=== PATIENT | female | born 1960 | race Caucasian/White ===

== ENCOUNTER 2016-09-08 18:58 | Inpatient (IN) | payer OTHER ==
[~2016-09-08] VITALS: Ht 172.7 cm; Wt 122.0 kg
[2016-09-08 19:03] VITALS: PULSE 63; RESP 18; O2SAT 99
[2016-09-08 19:34] LABS: BASOPHILS % (AUTO) 0.2 % (0-3); EOSINOPHILS % (AUTO) 1.8 % (0-5); MONOCYTES % (AUTO) 6.5 % (4-12); Mean Corpuscular Hemoglobin 27.3 pg (27.0-35.0); Mean Corpuscular Volume 84.1 fL (81-100); NEUTROPHILS % (AUTO) 70.8 % (40-74); Platelet Count 216 bil/L (150-400)
--- NOTE | 2016-09-08 19:35 | ED.REPORT ---
HPI-Chest Pain 40 and Over Date of Service Sep 08, 2016 ED Provider: Dr. Samir Johnston MD A 55 year old female with a history of anxiety presents to the ED complaining of substernal chest pain that began 45 minutes prior to arrival. She describes the pain as a pressure; as if "someone is sitting on her". She rates her current pain as a 7/10. Patient reports similar symptoms during previous anxiety attacks. She received one dose of Nitro upon arrival to the ED and experienced no relief. Patient is a former smoker and denies all other cardiac risk factors. Nursing Notes Stated Complaint: CHEST PAIN Chief Complaint: Chest Pain Nursing Notes Reviewed: Yes Allergies: Coded Allergies: ibuprofen (Verified Allergy, Mild, Headache, 09/08/16) Scheduled Cyanocobalamin (Vitamin B12) 500 Mcg Tablet 1,000 MCG PO QAM Estradiol (Vagifem) 10 Mcg Tablet 10 MCG VG WEEKLY Metformin (Metformin) 500 Mg Tablet 500 MG PO BIDWM Multivit with Calcium,Iron,Min (Therapeutic M) 1 Each Tablet 1 EACH PO QAM Thyroid,Pork (Nature-Throid) 65 Mg Tablet 65 MG PO HS Scheduled PRN Acetaminophen (Acetaminophen) 325 Mg Tablet 650 MG PO BID PRN PRN For Fever Naproxen (Naproxen) 250 Mg Tablet 250 MG PO DAILY PRN PRN For Pain General Time Seen by MD: 19:35 Chief Complaint Chest pain Hx Obtained From: Patient Arrived By: Walk-in Sudden in Onset?: No Onset Occurred: 1 - 4 hours ago (2 hours prior) Symptom Duration: Since onset Location: : Chest left: Chest right Quality: Pressure Radiation: : Does not radiate Migration/Movement: Reports: None Severity: Current: Mild Severity: Maximum: Moderate Pertinent Negative: Pt denies other symptoms Recent Healthcare: No recent doctor visit, No recent hospitalization Risk Factors )( CAD Risk Stratification Smoking (Former) Risk factors reviewed )( TAD Risk Stratification Risk factors reviewed )( PE Risk Stratification Risk factors reviewed Past Medical History Past Medical History Anxiety Obstructive Sleep Apnea Past Surgical History Colonoscopy Family History Grandmother heart attack at 80 Smoking History Former Smoker Social History Other Social History: Good social support, Local resident Ambulatory Status Independent Review of Systems Constitutional: Denies: Chills, Fever Cardiovascular: Reports: Chest pain GI: Reports: Nausea, Denies: Vomiting Complete sys rev & neg: except as marked. Physical Exam Initial Vital Signs Vital Signs (First) Date Time Temp Pulse Resp B/P Pulse Ox O2 Delivery O2 Flow Rate FiO2 09/08/16 19:03 36.1 63 18 99 Room Air 09/08/16 19:37 177/85 09/08/16 20:22 2 Initial VS: Reviewed Head / Eyes: Atraumatic, Normocephalic, PERRL Extremities: Vascular intact, Neuro intact, No swelling, No tenderness Skin: Warm, Dry, No cyanosis Neurologic: Alert, Oriented, Nonfocal Psychiatric: Mood/affect normal, Behavior normal, Normal thought content General/Constitutional: Awake, Alert Behavior: Positive: Anxious Respiratory / Chest: Atraumatic, Breath sounds NL, Breath sounds = bilat, No respiratory distress Cardiovascular: Heart rate NL, Regular rhythm, No gallop, No murmurs, No rubs Heart Sounds / Murmur: Positive: Systolic murmur present.. (Soft) CARDIO: Hypertensive upon arrival to ED Abdomen: Atraumatic, Soft Interpretation & Diagnostics Lab Results Interpretation Result Diagram: 09/08/16192209/08/161922 Test 09/08/16 19:23 White Blood Count 6.3th/mm3 (3.8-10.1) Red Blood Count 4.91mil/mm3 (3.90-5.20) Hemoglobin 13.4g/dL (12.0-15.6) Hematocrit 41.3% (35.0-46.0) Mean Corpuscular Volume 84.1fL (81-100) Mean Corpuscular Hemoglobin 27.3pg (27.0-35.0) Mean Corpuscular Hemoglobin Concent 32.4% (32.0-37.0) Red Cell Distribution Width 14.6% (12.3-15.4) Platelet Count 216bil/L (150-400) Neutrophils (%) (Auto) 70.8% (40-74) Lymphocytes (%) (Auto) 20.5% (14-46) Monocytes (%) (Auto) 6.5% (4-12) Eosinophils (%) (Auto) 1.8% (0-5) Basophils (%) (Auto) 0.2% (0-3) Activated Partial Thromboplast Time 31.5sec (22.8-33.0) Sodium Level 136mEq/L (134-144) Potassium Level 4.0mEq/L (3.5-5.2) Chloride Level 98mEq/L (97-108) Carbon Dioxide Level 22mmol/L (18-29) Blood Urea Nitrogen 11mg/dL (6-24) Creatinine 0.71mg/dL (0.57-1.00) Estimat Glomerular Filtration Rate 122mL/min (>59) Glucose Level 107mg/dL (60-99) Calcium Level 9.7mg/dL (8.5-10.1) Magnesium Level 2.1mg/dL (1.6-2.6) Total Bilirubin 0.4mg/dL (0.0-1.2) Aspartate Amino Transf (AST/SGOT) 16U/L (0-50) Alanine Aminotransferase (ALT/SGPT) 12U/L (0-32) Alkaline Phosphatase 85U/L (25-150) Total Creatine Kinase 115U/L (21-215) Creatine Kinase MB 2.9ng/mL (0.0-5.3) Creatine Kinase MB % % (0.0-5.0) Troponin T 0.034ug/L (0.0-0.011) Total Protein 7.8g/dL (6.4-8.4) Albumin 4.5g/dL (3.4-5.0) Thyroid Stimulating Hormone (TSH) 59.790uIU/mL (0.450-4.500) Hold Orellana Top Tube Received (Received) ECG Interpretation ECG Interpretation: Sinus rhythm No acute Rate 58 Time: 19:16 Interpreted by: ED physician ECG Interpretation: Sinus rhythm Rate 53 No acute Borderline prologned FL interval Probably left ventricular hypertrophy Anterior Q waves Time: 20:04 Interpreted by: ED physician Repeat ECG: Repeat ECG unchanged ECG Interpretation: Sinus rhythm Rate 56 No change Time: 21:51 Interpreted by: ED physician Repeat ECG: Repeat ECG unchanged X-Ray Chest Interpretation Chest Xray Interpretation: IMPRESSION: No acute disease Dictated by: Shelton Morgan M.D. on 09/08/2016 at 20:28 Interpretation / Wet Read by: Interpret - Radiologist Re-Eval/Medical Decision Med Decision/Clinical Course 55-year-old female with ischemic sounding chest pain and elevated troponin. ECGs have been without acute change 3. Treated for non-ST elevation ME with aspirin, topical nitrates, morphine, metoprolol, Plavix and heparin. Patient is quite anxious we gave her a small dose of lorazepam. Cardiology has been consulted will be admitted to the hospitalist service. Time of Eval: 20:26 Re-Evaluation/Progress Note: Patient reports that her pain is still a constant 7/10. She is informed of her concerning labs and the plan to admit. Time of Eval: 21:40 Patient Status: Condition improved Re-Evaluation/Progress Note: Patient is rechecked. Pain is still present. She rates her current pain as a 5/10. Consultation #1: Referral / Consult Name: Kaiser House MD Consulted With: Cardiology Call Returned at: 20:25 Ship'S Captain: Will see patient, Agrees with eval, Agrees with plan Note: Agrees to consult Consultation #2: Referral / Consult Name: Fredy Kraft MD Consulted With: Hospitalist Call Returned at: 20:54 Ship'S Captain: Will see patient, Agrees with eval, Agrees with plan, Accepts admit Counseled Regarding: Diagnosis, Lab results, Need for admission Discharge & Departure Primary Impression: Non-ST elevation ME (NSTEMI) Disposition: ADMITTED TO HOSPITAL Discharge Condition All VS Reviewed: Yes Condition: Stable Referrals: Gurinder Segundo MD (PCP) Latosha Attestation Portions of this note were transcribed by Abhi Dueñas. I, Dr. Johnston personally performed the history, physical exam and medical decision-making; I reviewed and confirmed the accuracy of the information in the transcribed note. Signed by: Latosha Phipps, 09/08/16 [id number]. copies to: Gurinder Segundo MD, Donald L MD Sep 08, 2016 19:35 ABHI DUEÑAS Sep 08, 2016 19:46
[2016-09-08 19:37] VITALS: BP 177/85; PULSE 65; RESP 18; O2SAT 99
[2016-09-08 19:52] LABS: TROPONIN T 0.034 ug/L (0.0-0.011)
[2016-09-08 20:03] LABS: Magnesium 2.1 mg/dL (1.6-2.6)
[2016-09-08 20:22] VITALS: BP 160/82; PULSE 65; RESP 19; O2SAT 98
[2016-09-08] MEDS ORDERED: Nitroglycerin 2% 1 Gm Ointment TOPICAL SCH (20:30)
[2016-09-08] MEDS ORDERED: Heparin 5,000 Unit/mL Inj IVPUSH ONE (20:30)
[2016-09-08] MEDS ORDERED: Heparin 25K Unit/500mL 0.45 NS 25,000 UNIT in IV Premix 1 EACH IV ONE (20:30)
--- NOTE | 2016-09-08 20:30 | DRSVH ---
PROCEDURE: X-RAY CHEST ONE VIEW, PORTABLE ([id number]) INDICATIONS: cp TECHNIQUE: One view of the chest was acquired. COMPARISON: None. FINDINGS: Surgical changes and devices: None. Lungs and pleura: No pleural effusions or pneumothorax. Lungs are clear. Mediastinum: Mediastinal contours appear normal. Heart size is normal. Bones and chest wall: No suspicious bony lesions. Overlying soft tissues appear unremarkable. IMPRESSION: No acute disease Dictated by: Shelton Morgan M.D. on 09/08/2016 at 20:28 Approved by: Shelton Morgan M.D. on 09/08/2016 at 20:28
[2016-09-08] MEDS ORDERED: THYR65TA4 PO (20:33)
[2016-09-08] MEDS ORDERED: METF500T4 PO (20:33)
[2016-09-08] MEDS ORDERED: ESTR10TA VG (21:10)
[2016-09-08] MEDS ORDERED: MULT-140 PO (21:13)
[2016-09-08] MEDS ORDERED: NAPR250T PO (21:13)
[2016-09-08] MEDS ORDERED: ACET325T51 PO (21:13)
[2016-09-08] MEDS ORDERED: CYAN500 PO (21:13)
[2016-09-08 21:16] VITALS: BP 172/81; PULSE 67; RESP 18; O2SAT 98
[2016-09-08] MEDS ORDERED: Senna-Docusate 8.6-50 mg Tablet PO PRN (21:30)
[2016-09-08] MEDS ORDERED: Alum-Mag Hydrox-Simeth 30 mL Suspension PO PRN (21:30)
[2016-09-08] MEDS ORDERED: Polyethylene Glycol (PEG) 17 Gm Powder PO PRN (21:30)
[2016-09-08] MEDS ORDERED: Ondansetron 2 mg/mL 2 mL Inj IVPUSH ONE (21:40)
--- NOTE | 2016-09-08 21:50 | PCM.HPMED ---
Subjective Date of Service Sep 08, 2016 Primary Provider: Admitting Physician: Fredy Kraft MD Primary Care Physician: Hair Roy MD Attending Physician: Fredy Kraft MD Admit Status: From the Emergency Department Chief Complaint: 2 hours of chest pain that did not resolve History of Present Illness: This is a pleasant 55 Y/O F with Hx of anxiety, diabetes type II and told on metformin 500 mg twice a day, thyroidism, takes thyroid pork 65 mg before bed, and WILFREDO on CPAP mask, who presented to the ED complaining of substernal chest pain, patient points to her chest onset 1800 on 09/08/2016. Patient describes the pain as a pressure; as if "someone is sitting on her". Associated symptoms include short of shortness of breath, nausea, blurry vision (which is not unusual for this patient with her previous episodes of chest pressure and dizziness), and pain with deep breathing. Patient denies any similar previous episodes of chest pain to this degree. Patient states that her pain is 8-9 out of 10. States that she received nitroglycerin and pain had worsened to 9 out of 10. Patient states that she was at rest however was very stressed at the time when the pain started. Patient reports similar symptoms during previous anxiety attacks. She received one dose of Nitro upon arrival to the ED and experienced slight worsening of her chest pain. Patient now complains of headache after nitroglycerin. Patient is a former smoker and quit in 1989. Patient used to smoke 1-3 cigarettes per day. Patient denied diaphoresis, pain that radiates to the neck, jaw, arm, or back, denies dizziness, lightheadedness, syncope, fever, cough, dyspnea, denies all other cardiac risk factors. Vital signs in the ED, temperature 36.1, pulse 60s, respiratory rate 18, BP 172/ 81, map 111, O2 98% on 2 L Patient received loading dose of heparin 5000 units once in the ED. Patient was placed on IV heparin drip in the ED. He was given metoprolol tartrate 25 mg by mouth once in the ED Patient was given loading dose of Plavix 3 mg once in the ED Patient was given Ativan 0.5 mg once, patient received half an inch of Nitropaste, morphine 2 mg, and aspirin 324 mg once. Hemogram showed H/H 13.4, 41.3, white blood cell count 6.3 otherwise normal hemogram. Chemstrip panel glucose 107, troponin 0.034, otherwise normal Chemstrip panel. Legs: PTT 31.5 CXR: No acute disease. Review of Systems: A comprehensive review of systems was conducted and was negative except as mentioned in history of present illness. Allergies Coded Allergies: ibuprofen (Verified Allergy, Mild, Headache, 09/08/16) Home Medications Metformin (Metformin) 500 Mg Tablet 500 MG PO BID Thyroid,Pork (Nature-Throid) 65 Mg Tablet 65 MG PO HS Multivitamin B12 PMH Anxiety Obstructive Sleep Apnea Heart murmur Surgical History Colonoscopy Family History Grandmother had a heart attack at age 80 Dad hypertension, prostate cancer Mom coronary disease, breast cancer, skin cancer Social History Hx Tobacco Use: No Smoking Status: Former Smoker Exam Vital Signs Vital Sign - Last Date Time Temp Pulse Resp B/P Pulse Ox O2 Delivery O2 Flow Rate FiO2 09/08/16 21:16 67 18 172/81 98 Nasal Cannula 2 09/08/16 19:03 36.1 Exam General: HEENT: NC/AT, eyes, PERRLA, EOMI, neck, soft supple, no adenopathy, no JVD, no masses, no thyromegaly, throat mucous membranes pink and moist/Dry, no erythema , no exudates, no tonsillar swelling, no uvular deviation. Lungs: CTAB all figueroa, no wheezes, no rhonchi, no crackles, no adventitious lung sounds, no use of accessory muscles of respiration, good air movement, good respiratory effort. Heart: Regular rate and rhythm, no murmur, S1-S2 present, no rub, no click, no distant heart sounds, Abdomen: Soft, nontender, nondistended, bowel sounds active, no rebound, no guarding, Genitourinary: No CVA tenderness, no suprapubic tenderness, no Mcfarlane catheter, Extremities: Muscle strength, 5 out of 5 upper/lower extremity and symmetric laterally, reflexes 2 out of 4 upper/lower extremity and symmetric bilaterally, pulses equal and symmetric upper/lower extremity including radial and dorsalis pedis, no edema Neurologic: See neurologically intact, PT in full sentences, no focal neurological signs, [id number], [id number], no pronator drift, no hemineglect. Skin: Psychiatric: Mood is cheerful and mood and affect are congruent and appropriate. Lab and Diagnostics Result Diagram: 09/08/16192209/08/161922 X-Rays, CTs and MRIs Date of Service: 09/08/161905 PROCEDURE: X-RAY CHEST ONE VIEW, PORTABLE INDICATIONS: cp TECHNIQUE: One view of the chest was acquired. COMPARISON: None. FINDINGS: Surgical changes and devices: None. Lungs and pleura: No pleural effusions or pneumothorax. Lungs are clear. Mediastinum: Mediastinal contours appear normal. Heart size is normal. Bones and chest wall: No suspicious bony lesions. Overlying soft tissues appear unremarkable. IMPRESSION: No acute disease Dictated by: Shelton Morgan M.D. on 09/08/2016 at 20:28 Approved by: Shelton Morgan M.D. on 09/08/2016 at 20:28 12-lead ECG -EKG, showed: Sinus rhythm rate 53, prolonged LA interval, probable left ventricular hypertrophy, anterior Q waves, inverted T waves in leads V1 and V2 and V3 Assessment & Plan 55-year-old female with history of obstructive sleep apnea, anxiety, diabetes mellitus type II who presented to the ED with acute onset substernal chest pain rated 8-9 out of 10 with elevated troponin, and abnormal EKG showing ST segment depressions in the inferior leads, with T-wave inversions in V1 through V3 consistent with NSTEMI. She was admitted to the hospital for NSTEMI and further workup # Acute Coronary Syndrome/NH, Present on Admission -EKG, showed: Sinus rhythm rate 53, prolonged LA interval, probable left ventricular hypertrophy, anterior Q waves, inverted T waves in leads V1 and V2 and V3 -CXR showed no acute disease -Troponin trending 2, CPK-MB ordered and pending -Echo ordered and pending -O2 Sats keep > 94% -IV normal saline fluids at 100 mL per hour maintenance dose -Start Metoprolol tartrate 12.5 mg every 12 hours -Start Lisinopril 5 mg daily -Atorvastatin 80 mg daily -Morphine for pain control -Aspirin 325mg + Plavix 300mg Loading with 75mg daily to follow -Patient received loading dose of Plavix 300 mg in the ED. -We will continue daily dosing of Plavix 75 mg tablet -Unfractionated Heparin IV dtt (Protamine for reversal if needed) -Continuous Cardiac Monitoring/BP monitoring -Cardio Consult -Labs (Lipid Panel, CBC, CMP, PT/PTT/INR) -Protonix IV Drip -NPO -Molded Goods Spot Picker Dr. House aware of this case Chronic problems Anxiety Obstructive Sleep Apnea Diabetes mellitus type II -We will hold metformin -Low-dose correctional scale insulin while in-house Disposition: Admitted to in patient service with expected length of stay greater than 2 days, secondary to severity of presenting symptoms, treatment plan, complexity of clinical work up, and risk of adverse events. CODE STATUS: Full code PCP: Hair Roy DVT PE prophylaxis: Patient on a heparin drip Contact: Antony patient's [phone] Pain Evaluation: Adequate Pain Control VTE Prophylaxis: Other (patient on heparin drip) Resuscitation Status: CPR: Attempt Resuscitation Attending Statement The patient was seen and examined together with Dr. Niño on 09/08/2016 and I agree with the history, exam and plan as outlined in the note above. Petros Niño DO Sep 08, 2016 21:50 Fredy Kraft MD Sep 09, 2016 05:05
[2016-09-08] MEDS ORDERED: Heparin 25K Unit/500mL 0.45 NS 25,000 UNIT in IV Premix 1 EACH IV SCH (22:05)
[2016-09-08] MEDS: 0.9% Sodium Chloride 1,000 ML IV SCH (22:42)
[2016-09-08 22:53] LABS: Creatine Kinase 115 U/L (21-215)
[2016-09-08] MEDS: Sodium Chloride LOK Flush 10 mL Syringe IVFLUSH SCH (23:07)
[2016-09-08 23:08] VITALS: BP 149/85; PULSE 63; RESP 19; O2SAT 98
--- NOTE | 2016-09-08 23:20 | NUR ---
Admit Pt arrived on unit at 2215. Pt was able to ambulate to scale and bed with SBA. Pt c/o 11/11 headache as well as mild CP at 07/14. MD in room and aware. VSS. A&Ox3. Placed on [employer] tele. Pt provides verbal health history. Family to bring in CPAP and complete med list. See flowsheet for complete assessment.
[2016-09-09] VITALS (9 sets, daily range): BP systolic 103–128; BP diastolic 51–78; PULSE 54–82; RESP 10–23; O2SAT 95–99
[2016-09-09 04:25] LABS: BASOPHILS % (AUTO) 0 % (0-3); EOSINOPHILS % (AUTO) 1.6 % (0-5); MONOCYTES % (AUTO) 6.6 % (4-12); Mean Corpuscular Hemoglobin 27.3 pg (27.0-35.0); Mean Corpuscular Volume 84.1 fL (81-100); NEUTROPHILS % (AUTO) 65.5 % (40-74); Platelet Count 202 bil/L (150-400)
[2016-09-09 04:41] LABS: INR 0.97 ratio
[2016-09-09 05:09] LABS: TROPONIN T 0.285 ug/L (0.0-0.011)
[2016-09-09] MEDS: Heparin Protocol Boluses IVPUSH PRN ×3 (05:18→22:32)
[2016-09-09] MEDS: Ondansetron 2 mg/mL 2 mL Inj IVPUSH PRN (05:26)
--- NOTE | 2016-09-09 07:33 | NUR ---
Cardiac status Substernal chest pressure unchanged from previous shift, rating discomfort 2 to 3/10. No radiating pain or associative symptoms reported at this time. Denies need for pain medication. Pressure stable. SB/SR per school bus monitor. Heparin gtt infusing per policy. Will continue to monitor.
[2016-09-09] MEDS: Sodium Chloride LOK Flush 10 mL Syringe IVFLUSH SCH ×3 (08:47→22:26)
--- NOTE | 2016-09-09 09:04 | PCM.PNMED ---
Subjective Date of Service Sep 09, 2016 Subjective This morning patient is feeling better. Her chest pain is down to 2-3/10. She denies shortness of breath, diaphoresis, vomiting. She endorses some nausea after receiving morphine. Telemetry: SR 7-80's. Exam Vital Signs Vital Sign - Last Date Time Temp Pulse Resp B/P Pulse Ox O2 Delivery O2 Flow Rate FiO2 09/09/16 07:29 Supplement Oxygen 09/09/16 07:26 36.8 56 16 128/77 99 1.00 Intake and Output 09/08/16 09/08/16 09/09/16 Cumulative From/Thru 15:00 23:00 07:00 09/08/16 19:03 - 09/09/16 06:16 Intake Total 0 ml 0 ml Output Total 250 ml 250 ml Balance -250 ml -250 ml Intake Oral 0 ml 0 ml Output Urine Total 250 ml 250 ml Exam General: Alert and oriented x 3 in no acute distress HEENT: Neck supple, jugulo venous distention, throat mucous membranes pink and moist Lungs: Clear to auscultation bilaterally, no wheezes, no rhonchi, no crackles Heart: Regular rate and rhythm, no murmur, S1-S2 present, no rub, no click, no distant heart sounds Abdomen: Soft, nontender, nondistended, bowel sounds active, no rebound, no guarding Extremities: No edema Lab and Diagnostics CK-MB 7.6 Troponin 0.034, 0.285 TSH 59.79 Free T4 0.39 Free T3 Cholesterol 214 LDL 139 Result Diagram: 09/09/16 0330 09/09/16 0330 X-Rays, CTs and MRIs CHEST x-ray IMPRESSION: No acute disease Dictated and approved by: Shelton Morgan M.D. on 09/08/2016 at 20:28 12-lead ECG -EKG, showed: Sinus rhythm rate 53, prolonged CT interval, probable left ventricular hypertrophy, anterior Q waves, inverted T waves in leads V1 and V2 and V3 Assessment & Plan Kimberly Garcia is a 55-year-old female with history of obstructive sleep apnea , anxiety, diabetes mellitus type II who presented to the ED with acute onset substernal chest pain rated 8-9 out of 10 with elevated troponin, and abnormal EKG showing ST segment depressions in the inferior leads, with T-wave inversions in V1 through V3 consistent with NSTEMI. She was admitted to the hospital for NSTEMI and further workup. Hospital day 1. # Acute Coronary Syndrome/MT, present on admission. Active -EKG, showed: Sinus rhythm rate 53, prolonged CT interval, probable left ventricular hypertrophy, anterior Q waves, inverted T waves in leads V1 and V2 and V3 -CXR showed no acute disease -Elevated troponin, CK-MB -Echo ordered and pending -O2 Sats keep > 94% -IV normal saline fluids at 100 mL per hour maintenance dose -Continue Metoprolol tartrate 12.5 mg every 12 hours -Continue Lisinopril 5 mg daily -Atorvastatin 80 mg daily -Morphine for pain control -Aspirin 325mg + Plavix 300mg Loading with 75mg daily to follow -Patient received loading dose of Plavix 300 mg in the ED. -We will continue daily dosing of Plavix 75 mg tablet -Unfractionated Heparin IV dtt (Protamine for reversal if needed) -Continuous Cardiac Monitoring/BP monitoring -Cardiology, Dr. Mock, consulted -Protonix IV Drip -NPO # Abnormally high thyroid stimulating hormone, present on admission. Active -Beside hypothyroidism, differential diagnosis include ectopic production, pituitary resistance, pituitary adenoma, TSH antibodies, etc. -Free T4 and T3 ordered -Call made to Dr. Jeremy Enciso, endocrinology -Spoke to Dr. Ingram, appreciate the input Chronic problems Hypothyroidism Anxiety Obstructive Sleep Apnea Diabetes mellitus type II -We will hold metformin -Low-dose correctional scale insulin while in-house Disposition: Admitted to in patient service with expected length of stay greater than 2 days, secondary to severity of presenting symptoms, treatment plan, complexity of clinical work up, and risk of adverse events. PCP: Hair Roy Contact: Antony patient's [phone] Pain Evaluation: Adequate Pain Control VTE Prophylaxis: Other (patient on heparin drip) Resuscitation Status: CPR: Attempt Resuscitation Attending Statement Patient's hypothyroidism precluded cardiac catheterization today. Levothyroxine supplementation at 50 g daily was initiated with planned cardiac catheterization tomorrow, 09/10/2016. The patient was seen and examined together with Dr. Beavers on 09/09/2016 and I agree with the history, exam and plan as outlined in the note above. . Bren Beavers DO Sep 09, 2016 09:04 Jatin Weinstein MD Sep 09, 2016 17:47
[2016-09-09] MEDS: 0.9% Sodium Chloride 1,000 ML IV SCH (10:48)
--- NOTE | 2016-09-09 11:28 | NUR ---
Social Work Note: Screen Note Data& Assessment: EMR reviewed. Kimberly Garcia is a 55 year old female admitted on 09/08/2016 for NON STEMI. Pt has [facility] insurance coverage and sees Hair Roy MD for primary care. Pt lives in [place] with her and is independent at baseline. 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 No discharge needs identified at this time. SW to continue to follow if any needs arise. Plan: Anticipated discharge home via POV when medically ready. No discharge needs identified at this time. SW to continue to follow if any needs arise. EULALIA Mccormack
--- NOTE | 2016-09-09 14:32 | DRSVH ---
[facility] [address] [place] [address] Echocardiogram Report Name: ALLA NAVARRETE ZStudy Date: Height: 68 in Hospital Exam Location: [facility] Weight: 268 lb Gender: Female BSA: 2.3 m2 : 1960 Age: 55 yrs BP: 126/61 mmHg Reason For Study: Chest pain History: obstructive sleep apnea, diabetes Ordering Physician: Performed By: Ileana Mayberry Referring Physician: Hair Roy Interpretation Summary 1) Normal left ventricular thickness and size with borderline reduced systolic function (EF 50-55%). 2) Mid to apical inferoseptum, mid to distal anteroseptum, and distal inferior wall are akinetic. 3) Normal right ventriciular size and function. 4) No significant valvular disease. 5) Elevated right sided filling pressures. 6) No prior Echo available for comparison. Procedure: A two-dimensional transthoracic echocardiogram with color flow and Doppler was performed. The study quality was technically adequate. There is no prior echocardiogram noted for this patient. The patient was in normal sinus rhythm during the exam. Left Ventricle: The left ventricle is normal in size. Left ventricular wall thickness is at the upper limits of normal. The ejection fraction is estimated to be 50-55%. Mid to apical inferoseptum, mid to distal anteroseptum, and distal inferior wall are akinetic. Assessment of diastolic parameters indicates normal left ventricular diastolic function and normal filling pressures. Right Ventricle: The right ventricle is normal in size and function. Atria: Both atria are normal in size. There is no Doppler evidence for an interatrial shunt. Mitral Valve: The mitral valve is normal in structure and function. There is trace mitral regurgitation. Aortic Valve: The aortic valve is trileaflet. The aortic valve opens well. There is no aortic valve stenosis. There is mild aortic regurgitation. Tricuspid Valve: The tricuspid valve is normal in structure and function. There is a trace or physiologic amount of tricuspid regurgitation. Pulmonary artery pressures cannot be estimated because of the lack of a measurable TR jet velocity. Pulmonic Valve: The pulmonic valve is not well visualized. There is a trace or physiologic amount of pulmonic regurgitation. Great Vessels: The aortic root is normal size. The ascending aorta is at the upper limits of normal in size. The aortic arch is at the upper limits of normal in size. The IVC is dilated (diameter is greater than 2.1 cm) and it collapses less than 50% with a sniff. This suggests a high right atrial pressure of 15 mm Hg. Pericardium/ Pleura There is no pericardial effusion. MMode/2D Measurements & Calculations LVIDd: 5.4 cm RA long axis LVOT diam: 2.0 cm LVIDs: 3.5 cm LA A2 area: 22.4 cm Ao root diam FS: 35.4 % LA A4 area: 22.2 cm RA area EPSS: 0.85 cm LA length (vol) asc Aorta Diam IVSd: 1.2 cm : 14.9 cm LVPWd: 1.0 cm LA vol: 71.9 ml RA vol Ao Arch Diam (Prox LA vol index : 40.8 ml Trans): 3.2 cm RA : 17.6 mm2 IVC diam: 2.3 cm LV henson. diameter/BSA LV sys. diameter/BSA RVD1 (basal) RVD2 (mid): 2.0 cm (cm/m^2): 2.3 (cm/m^2): 1.5 TAPSE: 2.4 cm Doppler Measurements & Calculations Ao V2 max MV E max gerry MV E/A: 1.2 PA V2 max : 216.8 cm/sec : 76.7 cm/sec Med Peak E' Gerry : 84.9 cm/sec Ao max PG MV A max gerry PA mean PG : 18.8 mmHg : 62.9 cm/sec E/E' med: 14.1 Ao mean PG MV P1/2t: 61.0 msec Lat Peak E' Gerry PA Accel Time : 0.12 sec LVOT Max Gerry E/E' lat: 8.6 : 126.3 cm/sec E/e' average: 11.3 Pulm A Revs Dur MILENA(I,D): 2.0 cm sev ratio MV A dur: 0.15 sec AI P1/2t : 1002 msec AI dec slope : 121.2 cm/s2c MV dec time MV P1/2t max gerry Ao V2 mean LV V1 max PG : 0.21 sec : 134.5 cm/sec MVA(P1/2t): 3.6 cm2 Ao V2 VTI: 52.7 cm LV V1 VTI MILENA(V,D): 1.9 cm2 : 33.7 cm PA V2 mean MILENA indexed to BSA Pulm A Revs Dur - MV A : 57.1 cm/sec (cm^2/m^2): 0.88 Dur: -0.01 msec Reading Physician:02:32 PM
--- NOTE | 2016-09-09 15:05 | PCM.CHPCAR ---
Consult Subjective Date of service Sep 09, 2016 Date of admit Sep 08, 2016 at 20:56 Provider Requesting Consult Requesting Provider: Jatin Weinstein MD Primary Care Physician Primary Care Physician: Hair Roy MD Chief Complaint chest pain, NSTEMI History of Present Illness 55 yo morbidly obese woman with severe hypothyroidism, diabetes, and estrogen use admitted with NSTEMI. At baseline, patient is mildly to moderately active. She can climb a small hill at a slow pace with dyspnea, like she did couple weeks ago in [place]. Yesterday, patient developed chest pain while on the phone with her [employer], who were making her upset. Chest pain persisted for 6 hours before it subsided but never completely resolved. She also got nitroglycerin in the ER but it did not help. Chronically, she has occasional lightheadedness on standing up from sitting position or changing position too fast and this lightheadedness self resolved within a few minutes. She denies palpitations, heart racing sensations, syncope, nausea, or vomiting. Roberts has chronic fatigue. She has not been getting treated for hypothyroidism but recently switched to [employer] Thyroid and has been taking it inconsistently. Review of Systems Review of Systems Per history of present illness and otherwise unremarkable PMH Past Medical History # Diabetes # Morbid obesity # Severe hyothyroidism # Estrogen use Bedside Blood Glucose: 102 Scheduled Cyanocobalamin (Vitamin B12) 500 Mcg Tablet 1,000 MCG PO QAM (Reported) Estradiol (Vagifem) 10 Mcg Tablet 10 MCG VG WEEKLY (Reported) Metformin (Metformin) 500 Mg Tablet 500 MG PO BIDWM (Reported) Multivit with Calcium,Iron,Min (Therapeutic M) 1 Each Tablet 1 EACH PO QAM ( Reported) Thyroid,Pork (Nature-Throid) 65 Mg Tablet 65 MG PO HS (Reported) Scheduled PRN Acetaminophen (Acetaminophen) 325 Mg Tablet 650 MG PO BID PRN PRN For Fever ( Reported) Naproxen (Naproxen) 250 Mg Tablet 250 MG PO DAILY PRN PRN For Pain (Reported) Current Inpatient Medications Current Medications Nitroglycerin 0.5 inch NOW TOPICAL Last administered on 09/08/16 21:09; Admin Dose 0.5 INCH; Start 09/08/16 at 20:30 Sodium Chloride 10 ml 10 ml RUFINA IVFLUSH Last administered on 09/09/16 14:12; Admin Dose 10 ML; Start 09/09/16 at 00:30 Sodium Chloride 1,000 ml @ 80 mls/hr [id number] IV Last administered on 09/09/16 10:48; Admin Dose 80 MLS/HR; Start 09/08/16 at 21:27 Lisinopril 5 mg BID PO Last administered on 09/09/16 08:47; Admin Dose 5 MG; Start 09/09/16 at 08:30 Metoprolol Tartrate 12.5 mg Q12 PO Last administered on 09/09/16 08:46; Admin Dose 12.5 MG; Start 09/09/16 at 08:30 Atorvastatin Calcium 80 mg HS PO; Start 09/09/16 at 21:00 Al Hydrox/Mg Hydrox/Simethicone 30 ml Q6 PRN PO; Start 09/08/16 at 21:30 Ondansetron HCl 4-8 mg prn nausea Q4 PRN IVPUSH Last administered on 09/09/16 05:26; Admin Dose 4 MG; Start 09/08/16 at 21:30 Senna 1 tablet BID PRN PO; Start 09/08/16 at 21:30 Polyethylene Glycol 17 gm DAILY PRN PO; Start 09/08/16 at 21:30 Acetaminophen 325 mg Q6 PRN PO Last administered on 09/09/16 10:03; Admin Dose 325 MG; Start 09/08/16 at 21:30 Morphine Sulfate 1-5 mg prn pain not relie... Q5M PRN IVPUSH Last administered on 09/09/16 05:23; Admin Dose 2 MG; Start 09/08/16 at 21:30 Aspirin 325 mg DAILY PO Last administered on 09/09/16 08:47; Admin Dose 325 MG; Start 09/09/16 at 08:30 Heparin Sodium (Porcine) PER PROTOCOL PRN PRN IVPUSH Last administered on 11:07; Admin Dose 1,000 UNIT; Start 09/08/16 at 22:10 Morphine Sulfate 2 mg Q4H PRN IVPUSH; Start 09/08/16 at 22:10; Status Cancel Levothyroxine Sodium 50 mcg DAILYAC PO; Start 09/10/16 at 07:30 Allergies: Coded Allergies: ibuprofen (Verified Allergy, Mild, Headache, 09/08/16) Family History Family History Her has diabetes but no heart disease. No family history of early heart disease. Social History Hx Alcohol Use: NoHx Substance Use: NoHx Tobacco Use: No Smoking Status: Former Smoker (quit 1998) Exam Vital Signs Vital Sign - Last Date Time Temp Pulse Resp B/P Pulse Ox O2 Delivery O2 Flow Rate FiO2 09/09/16 11:44 36.7 57 10 127/62 99 Room Air 09/09/16 07:26 1.00 Intake and Output 09/08/16 09/08/16 09/09/16 Cumulative From/Thru 15:00 23:00 07:00 09/08/16 19:03 - 09/09/16 06:16 Intake Total 0 ml 0 ml Output Total 250 ml 250 ml Balance -250 ml -250 ml Intake Oral 0 ml 0 ml Output Urine Total 250 ml 250 ml General appearance: No apparent distress, well-nourished, pleasant, cooperative HEET: Normocephalic atraumatic, no scleral icterus, tongue midline, mucous membranes moist Neck: supple, no carotid bruits Cardiovascular: RRR, normal S1 and normal S2, no m/r/g, PMI nondisplaced, JVP 10cm H20, no peripheral edema b/l Respiratory: Good aeration, CTAB Abdomen: Soft, nontender, obese, + bowel sounds Neuro: Alert, no facial droop, tongue midline Psych: mildly anxious Skin: no rashes on face, neck, and lower extremities Lab and Diagnostics Labs troponin 0.285 LDL 139, total chol 214, HDL 51, TSH 59.8, FT4 0.39 Result Diagram: 09/09/16 0330 09/09/16 0330 X-Rays, CTs and MRIs Eco 09/09/2016: 1) Normal left ventricular thickness and size with borderline reduced systolic function (EF 50-55%). 2) Mid to apical inferoseptum, mid to distal anteroseptum, and distal inferior wall are akinetic. 3) Normal right ventriciular size and function. 4) No significant valvular disease. 5) Elevated right sided filling pressures. 6) No prior Echo available for comparison. 12-lead ECG ECG on admission shows sinus rhythm with nonspecific T-wave changes and Q waves in V1 and V2 that could be due to prior anteroseptal ME. Assessment & Plan Assessment 55 yo morbidly obese woman with severe hypothyroidism, diabetes, and estrogen use admitted with NSTEMI. # NSTEMI: Patient's clinical story suggestive of acute coronary syndrome, as corroborated by the troponin of 0.285. She is minimally symptomatic presently and is very comfortable (does not want to take nitroglycerin). Her echocardiogram shows EF 50-55% with wall motion abnormalities in the RCA territory (inferoseptum/distal inferior wall) and possibly LAD territory ( anteroseptum). I spent significant time agitated and the patient about her condition. In usual case we would proceed with coronary angiography and possible PCI. However, patient's care is, by severe hypothyroidism with TSH of 59.8. Severe hypothyroidism can significantly and has effects of analgesics and anxiolytics that are commonly used during cardiac cath. Patient is an anxious person and would prefer to have sedation. After speaking with [facility] cardiology (Dr. Sanders) and endocrinology (Dr. Barby Sweet) and Dr. Sanchez ([facility] interventional cardiology), there is consensus to do the coronary angiography with minimal sedation and also monitoring tomorrow. Patient agrees with the plan. Recommendations as below: - Continue aspirin 81mg daily - Continue atorvatatin 80mg daily - s/p plavix 300mg load 09/08/2016 - Continue heparin gtt - Continue telemetry - Stop estrogen use as it significantly increases risk of ME - Coronary angiography with possible PCI tomorrow with Dr. Sanchez at 10AM. Informed consent signed after discussing benefits and risks and alternatives. # Severe hypothyroidism: Patient has severe hypothyroidism. She is not in myxedema coma. Dr. Barby Sweet ( endocrinology) suggest starting the patient on low-dose (50mcg) levothyroxine and uptitrating his slowly over the next couple of days to 125 g for 4 weeks and reassessing thryoid function. - Start levothyroxine 50mg daily and uptitrate in 1-2 days - Establish care with endocrinology as outpatient # HLD: Patient was not on a statin before. She has mild to moderate hyperlipidemia. Statin as above for management. # Diabetes: well managed. Defer to primary team for management. Thank you for the interesting consultation. I spent significant time speaking with the patient and coordinating care with various specialists, including from the [facility]. Cardiology will continue to follow. Pain Evaluation: Adequate Pain Control VTE Prophylaxis: Other (patient on heparin drip) Resuscitation Status: CPR: Attempt Resuscitation Ric Mock MD Sep 09, 2016 15:05
[2016-09-09 16:02] LABS: TROPONIN T 0.082 ug/L (0.0-0.011)
[2016-09-10] VITALS (17 sets, daily range): BP systolic 112–143; BP diastolic 60–84; PULSE 55–80; RESP 14–18; O2SAT 96–98
[2016-09-10] MEDS: 0.9% Sodium Chloride 1,000 ML IV SCH ×2 (01:21→12:45)
[2016-09-10] MEDS: Heparin Protocol Boluses IVPUSH PRN (04:35)
[2016-09-10 08:01] LABS: BASOPHILS % (AUTO) 0.2 % (0-3); EOSINOPHILS % (AUTO) 1.9 % (0-5); MONOCYTES % (AUTO) 6.5 % (4-12); Mean Corpuscular Hemoglobin 27.2 pg (27.0-35.0); Mean Corpuscular Volume 85.8 fL (81-100); NEUTROPHILS % (AUTO) 67.6 % (40-74); Platelet Count 181 bil/L (150-400)
[2016-09-10] MEDS: Sodium Chloride LOK Flush 10 mL Syringe IVFLUSH SCH ×2 (08:59→15:34)
[2016-09-10] MEDS ORDERED: 0.9% Sodium Chloride 1,000 ML ONE (09:08)
[2016-09-10] MEDS ORDERED: Heparin 1,000 Units/500 mL NS Premix IV ONE (09:08)
[2016-09-10] MEDS ORDERED: Heparin 5,000 Units/500 mL NS Premix IV ONE (09:09)
[2016-09-10] MEDS ORDERED: fentaNYL-PF 50 mCg/mL 2 mL Inj ONE (11:13)
[2016-09-10] MEDS ORDERED: hydrALAZINE 20 mg/mL Inj ONE ×2 (11:26→11:45)
[2016-09-10] MEDS: Ondansetron 2 mg/mL 2 mL Inj IVPUSH PRN (12:46)
--- NOTE | 2016-09-10 13:21 | CS94 ---
[address] [address] DIAGNOSTIC CARDIAC CATHETERIZATION PATIENT: ALLA NAVARRETE : 1960 MR#: [id number] ADMIT: 09/08/2016 JOB ID: [id number] SERVICE DATE: 09/10/2016 PATIENT PROFILE: The patient is a 55-year-old lady who presented with chest discomfort and elevated troponin. PROCEDURE: 1. Retrograde left heart catheterization. 2. Selective coronary angiography. 3. Left ventricular angiogram. 4. Vascular closure device: Perclose. COMPLICATIONS: None. METHOD: Retrograde left heart catheterization was performed from the right groin under 1% lidocaine local anesthesia using a 6-Austrian sheath. Selective coronary angiogram was performed in multiple projections, including cranial and caudal angulations with hand injected contrast via JL4 and 3DRC catheters. A 6-Austrian angulated pigtail catheter was advanced to the left ventricle and left ventricular angiogram was performed in the 30 degree SNOWDEN view by injecting contrast at the rate of 12 cc/second for 3 seconds. This catheter was withdrawn. Right femoral angiogram was performed. Following sheath removal, hemostasis was achieved by using a Perclose device. The patient tolerated procedure well. She was transferred to ICU in good condition. Total contrast used: 70 cc. Fluoro time: 1.2 minutes. RESULTS: 1. Selective coronary angiogram. a. Left main coronary artery is normal. b. The left anterior descending artery is transapical and normal. c. The circumflex artery is normal. d. The dominant right coronary artery is normal. 2. Left ventricular angiogram demonstrates mildly depressed left ventricular systolic function (visually estimated LVEF 50%). The middle third of the anterolateral wall and middle third of the inferior wall are akinetic. The remaining segments contract normally. 3. There is no gradient across the aortic valve on catheter withdrawal. 4. Aortic pressure is 181/92 mmHg. Left ventricular pressure is 177/15 mmHg. 5. Left ventricular end-diastolic pressure is 27 mmHg. CONCLUSION: 1. Normal coronary arteries. 2. Stress induced cardiomyopathy with ejection fraction 50%. 3. LVEDP is 27 mmHg. MTDD
[2016-09-10] MEDS ORDERED: Sodium Chloride LOK Flush 10 mL Syringe IVFLUSH PRN (13:50)
[2016-09-10] MEDS ORDERED: Atropine 1 mg/10 mL (Code) Syringe IVPUSH PRN (13:50)
[2016-09-10] MEDS ORDERED: Ondansetron 2 mg/mL 2 mL Inj IVPUSH PRN (13:50)
[2016-09-10] MEDS ORDERED: 0.9% Sodium Chloride 250 ML BOLUS IV PRN (13:50)
[2016-09-10] MEDS ORDERED: 0.9% Sodium Chloride 600 ML IV ONE (13:50)
--- NOTE | 2016-09-10 14:15 | NUR ---
Post cath Patient arrived post procedure at 1203 today. Patient denied having any pain. Right groin post cath puncture side remained stable with weak +1 but palpable bilateral pedal pluses. Patient stared having nausea shortly after returning for recovery. Patient was medicated with Zofran 8mg IV with good relive of symptoms. Patient voided X1 on a bedpan pos procedure. Sign off recovery to primary nurse at 1410.
[2016-09-10] MEDS ORDERED: METO25TA6 PO (15:02)
[2016-09-10] MEDS ORDERED: LEVO125T6 PO (15:02)
--- NOTE | 2016-09-10 15:11 | PCM.DIMED ---
Tao Hook DO 09/10/16 1511: Discharge Instructions Date of Service Sep 10, 2016 Dates of Hospitalization Sep 08, 2016 at 20:56 Discharge Diagnosis Discharge Diagnosis Stress cardiomyopathy Hypothyroidism Anxiety Obstructive sleep apnea Diabetes mellitus, type 2 Obesity with BMI 40 Medication Instructions During this hospitalization you were started on some new medications. Unless otherwise instructed by your physician, please follow these instructions. Note that your medications may continued to be changed by your physician. -Stop taking the pork thyroid -New medications include: -Metoprolol 12.5mg. Take 12.5mg by mouth twice daily. -Levothyroxine 125mcg. Take one tablet by mouth daily in the morning on an empty stomach. New prescriptions have been sent electronically to your pharmacy. Diet Heart Healthy, Diabetic Activity No restrictions Call your provider Fever or Chills, Chest pain Patient Instructions Follow-up plan Follow up with your primary care physician in about 1 week. Follow up with an machinist 2nd shift in about 4 weeks. Contact information for [facility] Endocrinology is provided below if you do not have an machinist 2nd shift in mind. Follow up with Cardiology in about 4 weeks. Contact information for [facility] Cardiology is provided below. [facility] Endocrinology [address] [place] [address] [facility] Cardiology [address] [place] [id number] Follow-up Provider: Hair Roy MD Follow-up with PCP in: 1 week Provider: CARDIOLOGY,[facility] Follow-up in: 4 weeks Jatin Weinstein MD 09/11/16 1032: Discharge Instructions Attending's Statement The patient was seen and examined together with Dr. Hook on 09/10/2016 and I agree with the history, exam and plan as outlined in the note above. . Tao Hook DO Sep 10, 2016 15:11 Jatin Weinstein MD Sep 11, 2016 10:32
--- NOTE | 2016-09-10 15:33 | NUR ---
Social Work Note: Discharge Data& Assessment: EMR reviewed. Per pt is medically improved and ready for discharge. SW met with pt at bedside to confirm discharge plan and assess for any unmet needs. Kimberly Garcia is a 55 year old female admitted on 09/08/2016 for NON Stemi. Pt underwent heart cath today and per pt is medically improved and ready for discharge. Pt transporting her home today. Pt denies any other needs. No other discharge needs identified all updated and agreeable to plan. Plan: Per pt is medically improved and ready to discharge home via POV. Pt denies any other needs. No other discharge needs identified all updated and agreeable to plan. EULALIA Mccormack
--- NOTE | 2016-09-10 17:11 | NUR ---
Discharge Pt VSS, denies CP/Pressure, R groin site c/d/i, no hematoma or oozing. Bilateral DP pulses 1+ and palpable. Denies nausea. Reported [place], 975mg PO Tylenol given, pt reports some relief. Discharge teaching complete, pt denies questions. to drive pt home. Addendum: 09/10/16 at 1913 by TORIBIO TARCY RN Pt d/c'd home with at 1914, IV d/c'd in [facility]. All belongings sent with pt upon d/c.
--- NOTE | 2016-09-11 14:07 | PCM.DC.MED ---
Discharge Summary Date of Service Sep 11, 2016 Dates of Hospitalization Date of Hospital Admission Sep 08, 2016 at 20:56 Date of Discharge: Sep 10, 2016 Providers: Admitting Physician: Fredy Kraft MD Primary Care Physician: Hair Roy MD Attending Physician: Fredy Kraft MD Diagnosis at Time of Discharge Diagnosis at Time of Discharge Stress cardiomyopathy Hypothyroidism Anxiety Obstructive sleep apnea Diabetes mellitus, type 2 Obesity with BMI [address] Ric Mock of Cardiology Procedures XRay, CTs & MRIs CHEST x-ray IMPRESSION: No acute disease Dictated and approved by: Shelton Morgan M.D. on 09/08/2016 at 20:28 ECG 12 Lead -EKG, showed: Sinus rhythm rate 53, prolonged LA interval, probable left ventricular hypertrophy, anterior Q waves, inverted T waves in leads V1 and V2 and V3 Cardiac Echo Impression Echocardiogram Report Study Date: 09/09/2016 Interpretation Summary 1) Normal left ventricular thickness and size with borderline reduced systolic function (EF 50-55%). 2) Mid to apical inferoseptum, mid to distal anteroseptum, and distal inferior wall are akinetic. 3) Normal right ventriciular size and function. 4) No significant valvular disease. 5) Elevated right sided filling pressures. 6) No prior Echo available for comparison. Invasive Procedures DIAGNOSTIC CARDIAC CATHETERIZATION SERVICE DATE: 09/10/2016 PROCEDURE: 1. Retrograde left heart catheterization. 2. Selective coronary angiography. 3. Left ventricular angiogram. 4. Vascular closure device: Perclose. RESULTS: 1. Selective coronary angiogram. a. Left main coronary artery is normal. b. The left anterior descending artery is transapical and normal. c. The circumflex artery is normal. d. The dominant right coronary artery is normal. 2. Left ventricular angiogram demonstrates mildly depressed left ventricular systolic function (visually estimated LVEF 50%). The middle third of the anterolateral wall and middle third of the inferior wall are akinetic. The remaining segments contract normally. 3. There is no gradient across the aortic valve on catheter withdrawal. 4. Aortic pressure is 181/92 mmHg. Left ventricular pressure is 177/15 mmHg. 5. Left ventricular end-diastolic pressure is 27 mmHg. CONCLUSION: 1. Normal coronary arteries. 2. Stress induced cardiomyopathy with ejection fraction 50%. 3. LVEDP is 27 mmHg. Lohavanichbutr, Kamol MD 09/10/16 1139 Brief History Per admit note by Dr. Bren Beavers: 55 yo morbidly obese woman with severe hypothyroidism, diabetes, and estrogen use admitted with NSTEMI. At baseline, patient is mildly to moderately active. She can climb a small hill at a slow pace with dyspnea, like she did couple weeks ago in [place]. Yesterday, patient developed chest pain while on the phone with her [employer], who were making her upset. Chest pain persisted for 6 hours before it subsided but never completely resolved. She also got nitroglycerin in the ER but it did not help. Chronically, she has occasional lightheadedness on standing up from sitting position or changing position too fast and this lightheadedness self resolved within a few minutes. She denies palpitations, heart racing sensations, syncope, nausea, or vomiting. Roberts has chronic fatigue. She has not been getting treated for hypothyroidism but recently switched to [place] Thyroid and has been taking it inconsistently. Hospital Course Patient is a 55-year-old female with obstructive sleep apnea, anxiety, diabetes mellitus type II who presented to [facility] with acute onset substernal chest pain rated 8-9 out of 10 with elevated troponin, and abnormal EKG showing ST segment depressions in the inferior leads, with T-wave inversions in V1 through V3 consistent with an NSTEMI. Cardiology was consulted and the patient underwent a left heart catheterization that showed normal coronary arteries and evidence of stress induced cardiomyopathy with estimated ejection fraction 50%. During her hospitalization the patient was also found to have elevated TSH and started on levothyroxine. # Stress induced cardiomyopathy, present on admission -Left heart catheterization showed stress induced cardiomyopathy with estimated EF 50%. -Patient discharged with metoprolol tartrate 12.5 BID. She is to follow up with Cardiology about 4 weeks after discharge. # Hypothyroidism with elevated TSH, present on admission -TSH 59.7 on admit -Patient previously on pork thyroid. It was recommended that she not restart this form of thyroid. -Discussed with Endocrinology (Dr. Barby Sweet) and it was recommended the patient be discharged with levothyroxine 125mcg. She is to follow up with an motor scooter mechanic in about 4 weeks. #Type Diabetes mellitus type II, chronic. Present on admission -Patient's home metformin was held and a low dose insulin Lispro correctional scale was used to manage blood glucose during hospitalization. Exam Vital Signs (Last) Date Time Temp Pulse Resp B/P Pulse Ox O2 Delivery O2 Flow Rate FiO2 09/10/16 15:46 80 14 143/84 09/10/16 12:52 36.7 98 Nasal Cannula 2.00 Exam General: No acute distress, well-developed, well-nourished, appropriately interactive HEENT: Normocephalic, atraumatic. External ears without defect. Anicteric sclerae, moist conjunctivae, and no lid lag. Oropharynx free of erythema and cobble stoning with moist mucosa. Neck: Supple. No JVD Cardiovascular: Regular rate and rhythm with no murmurs, rubs, or gallops appreciated Pulmonary: Clear to auscultation bilaterally with no crackles, wheezes, or rhonchi. Normal respiratory effort with no use of accessory muscles. Abdomen: Bowel tones present. Soft, nontender, nondistended. Extremities: No clubbing, cyanosis, edema, or lymphadenopathy appreciated. Skin: Normal temperature, turgor, and texture; no rash, ulcers, or subcutaneous nodules appreciated. Neurological: Cranial nerves grossly intact. Psychiatric: Normal mood and affect.Alert and oriented to person, place, and time. Test 09/08/16 19:23 09/08/16 22:17 09/09/16 03:30 09/09/16 14:22 D-Dimer < 0.50mg/L FEU (<0.50) Magnesium Level 2.1mg/dL (1.6-2.6) Total Bilirubin 0.4mg/dL (0.0-1.2) Aspartate Amino Transf (AST/SGOT) 16U/L (0-50) Alanine Aminotransferase (ALT/SGPT) 12U/L (0-32) Alkaline Phosphatase 85U/L (25-150) Total Protein 7.8g/dL (6.4-8.4) Albumin 4.5g/dL (3.4-5.0) Thyroid Stimulating Hormone (TSH) 59.790uIU/mL (0.450-4.500) Hold [place] Top Tube Received (Received) Hold Urine Received (Received) Prothrombin Time 10.4sec (8.1-12.5) Prothromb Time International Ratio 0.97ratio Triglycerides Level 119mg/dL (0-149) Cholesterol Level 214mg/dL (100-199) LDL Cholesterol, Calculated 139.200mg/dL (0-99) VLDL Cholesterol 23.800mg/dL HDL Cholesterol 51mg/dL (>39) Cholesterol/HDL Ratio 4.20 (0.0-4.4) Free Thyroxine 0.39ng/dL (0.82-1.77) Free Triiodothyronine 1.9pg/mL (2.0-4.4) Total Creatine Kinase 113U/L (21-215) Creatine Kinase MB 5.7ng/mL (0.0-5.3) Creatine Kinase MB % 5.0% (0.0-5.0) Test 09/09/16 21:34 09/10/16 07:45 09/10/16 09:48 Troponin T 0.071ug/L (0.0-0.011) White Blood Count 5.2th/mm3 (3.8-10.1) Red Blood Count 4.16mil/mm3 (3.90-5.20) Hemoglobin 11.3g/dL (12.0-15.6) Hematocrit 35.7% (35.0-46.0) Mean Corpuscular Volume 85.8fL (81-100) Mean Corpuscular Hemoglobin 27.2pg (27.0-35.0) Mean Corpuscular Hemoglobin Concent 31.7% (32.0-37.0) Red Cell Distribution Width 14.7% (12.3-15.4) Platelet Count 181bil/L (150-400) Neutrophils (%) (Auto) 67.6% (40-74) Lymphocytes (%) (Auto) 23.4% (14-46) Monocytes (%) (Auto) 6.5% (4-12) Eosinophils (%) (Auto) 1.9% (0-5) Basophils (%) (Auto) 0.2% (0-3) Sodium Level 140mEq/L (134-144) Potassium Level 3.9mEq/L (3.5-5.2) Chloride Level 104mEq/L (97-108) Carbon Dioxide Level 24mmol/L (18-29) Blood Urea Nitrogen 13mg/dL (6-24) Creatinine 0.69mg/dL (0.57-1.00) Estimat Glomerular Filtration Rate 127mL/min (>59) Glucose Level 118mg/dL (60-99) Calcium Level 8.5mg/dL (8.5-10.1) Activated Partial Thromboplast Time 60.4sec (22.8-33.0) Discharge Medications Discharge Medications Cyanocobalamin (Vitamin B12) 500 Mcg Tablet 1,000 MCG PO QAM (Reported) Estradiol (Vagifem) 10 Mcg Tablet 10 MCG VG WEEKLY (Reported) Levothyroxine (Levothyroxine) 125 Mcg Tablet 125 MCG PO DAILY Prescribed by: JANIE HERNANDEZ DO Metformin (Metformin) 500 Mg Tablet 500 MG PO BIDWM (Reported) Metoprolol Tartrate (Metoprolol Tartrate) 25 Mg Tablet 12.5 MG PO Q12 Prescribed by: JANIE HERNANDEZ DO Multivit with Calcium,Iron,Min (Therapeutic M) 1 Each Tablet 1 EACH PO QAM ( Reported) As needed Acetaminophen (Acetaminophen) 325 Mg Tablet 650 MG PO BID PRN PRN For Fever ( Reported) Naproxen (Naproxen) 250 Mg Tablet 250 MG PO DAILY PRN PRN For Pain (Reported) Additional med instructions During this hospitalization you were started on some new medications. Unless otherwise instructed by your physician, please follow these instructions. Note that your medications may continued to be changed by your physician. -Stop taking the pork thyroid -New medications include: -Metoprolol 12.5mg. Take 12.5mg by mouth twice daily. -Levothyroxine 125mcg. Take one tablet by mouth daily in the morning on an empty stomach. New prescriptions have been sent electronically to your pharmacy. Followup Plan Follow-up plan Follow up with your primary care physician in about 1 week. Follow up with an motor scooter mechanic in about 4 weeks. Contact information for [facility] is provided below if you do not have an motor scooter mechanic in mind. Follow up with Cardiology in about 4 weeks. Contact information for [facility] is provided below. [facility] [address] [place] [address] [facility] [address] [facility] [address] [place] [address] Discharge Diet: Heart Healthy, Diabetic Discharge Activity: No restrictions Follow-up Provider: Hair Roy MD Follow-up with PCP in: 1 week Provider: [facility] Follow-up in: 4 weeks Time spent Greater than 30 minutes was spent in preparation of discharge with greater than 50% of that time dedicated to patient counseling and coordination of care. . Attending Statement The patient was seen and examined together with Dr. Hernandez on 09/10/2016 and I agree with the history, exam and plan as outlined in the note above. . copies to: Hair Roy MD, Bob A DO Sep 11, 2016 11:44 Jatin Weinstein MD Sep 12, 2016 10:59
== END 2016-09-10 19:15 | disposition home or self-care (01) | DRG 287 ==
LOC: SED 18:58 → PCC 20:56
PROVIDERS: ADMIT Family Medicine; ATTEND Family Medicine
PROC: 4A023N7 Measurement of Cardiac Sampling and Pressure, Left Heart, Percutaneous Approach (ICD-10-PCS; principal; 2016-09-08)
PROC: B2111ZZ Fluoroscopy of Multiple Coronary Arteries using Low Osmolar Contrast (ICD-10-PCS; 2016-09-08)
PROC: B2151ZZ Fluoroscopy of Left Heart using Low Osmolar Contrast (ICD-10-PCS; 2016-09-08)
DX: I51.81 Takotsubo syndrome (principal); Z68.41 Body mass index [BMI] 40.0-44.9, adult; G47.33 Obstructive sleep apnea (adult) (pediatric); E03.9 Hypothyroidism, unspecified; F41.9 Anxiety disorder, unspecified; E66.01 Morbid (severe) obesity due to excess calories; E78.5 Hyperlipidemia, unspecified; E11.9 Type 2 diabetes mellitus without complications; Z87.891 Personal history of nicotine dependence; Z79.84 Long term (current) use of oral hypoglycemic drugs